=== PATIENT | male | born 1995 | race Caucasian/White ===

== ENCOUNTER → 2020-01-19 | Outpatient (CLI) | payer BC, OTHER ==
[~2020-01-19] MED LIST: MULTI VITAMIN1 EACH PO
== END ==
LOC: LAB 12:05
PROVIDERS: ATTEND Surgery
DX: Z01.812 Encounter for preprocedural laboratory examination (principal); Z20.828 Contact with and (suspected) exposure to other viral communicable diseases

== ENCOUNTER 2020-01-22 11:32 | Day surgery (SDC) | payer BC, OTHER ==
--- NOTE | 2020-01-21 16:09 | H ---
[facility] [address] HISTORY AND PHYSICAL Name: ANNETTE RAMAN KIM Room #: [place] [facility].#: [id number] Admission: Attend Phys: Mitesh Ibarra MD Discharge: Date of : 95 Report #: [id number] THIS REPORT FOR: cc: Henok Branch,Henok Yan,Mitesh Marin MD ~ CC: Henok Childs DATE OF SERVICE: 01/22/2020 SURGERY ADMISSION HISTORY AND PHYSICAL PATIENT OF: Dr. Henok Branch and Dr. Mitesh Ibarra. DATE OF ADMISSION AND SURGERY: 01/22/2020. CHIEF COMPLAINT: Right groin pain. HISTORY OF PRESENT ILLNESS: The patient is a 24-year-old white male who noticed some burning pain in his right groin about 1-1/2 years ago. He has not had any pain recently. No previous history of any hernias. He denied changes in bowel or bladder habits. He did notice a bulge in the right groin. He saw his primary care physician, Dr. Henok Branch who recommended surgical consultation. PAST MEDICAL HISTORY: Anxiety, hypertension, C. diff in 2017. MEDICATIONS: Melatonin and Tylenol p.r.n. ALLERGIES: PENICILLIN CAUSES ANAPHYLAXIS. FAMILY HISTORY: Mother with hypertension, father with history of hypertension, and maternal grandfather with history of colon carcinoma. SOCIAL HISTORY: The patient is single. Drinks alcohol occasionally, does smoke e-cigarettes. 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 REVIEW OF SYSTEMS: Pertinent positives as above. Full review of systems otherwise negative. PHYSICAL EXAMINATION: GENERAL: This is a well-developed, well-nourished, morbidly obese white male, in no acute distress. VITAL SIGNS: Stable. He is afebrile. Height is 70 inches, weight is 325 [facility] [address] [place] [address] HISTORY AND PHYSICAL Name: ANNETTE RAMAN KIM Room #: PRE [facility]..#: [id number] Admission: Attend Phys: Mitesh Ibarra MD Discharge: Date of : 95 Report #: [id number] pounds, BMI of 46.6. HEENT: Unremarkable. LUNGS: Clear to auscultation bilaterally. Normal excursion. CARDIOVASCULAR: Regular rate and rhythm. No murmurs, S3 or S4. Normal PMI. ABDOMEN: Obese, soft, flat and nontender. No palpable masses, no organomegaly, no abdominal wall hernias. GENITOURINARY: Normal scrotum, phallus and testes. He has a large inguinoscrotal hernia, right inguinal hernia, which is tender, partially reducible. EXTREMITIES: No clubbing, cyanosis or edema. NEUROLOGIC: Intact with a clear mental status. No focal motor or sensory deficits. IMPRESSION: A 24-year-old morbidly obese white male, moderate to large sized right inguinoscrotal hernia. I fully discussed with the patient the diagnosis, prognosis, treatment options. I did thoroughly discuss with the patient that hernia surgery may relieve all, some or none of his symptoms and groin pain. He states he understands and agrees to proposed surgery. PLAN: We will perform a right inguinal hernia repair with mesh under local IV sedation as an outpatient at [facility]. The procedure and its risks, benefits and possible complications including the use of mesh, fully discussed with the patient. He states he understands and agrees to proposed surgery. <ELECTRONICALLY SIGNED> By: Mitesh Ibarra MD 01/21/20 1609 [id number] Mitesh Ibarra MD /nt
[~2020-01-22] VITALS: Ht 182.9 cm; Wt 147.9 kg
[2020-01-22 11:58] VITALS: BP 124/73
[2020-01-22] MEDS ORDERED: MELATONIN3 M1 PO (12:32)
[2020-01-22] MEDS ORDERED: NORCO 5-325 TA1 EAC2 PO (13:36)
[2020-01-22 15:43] VITALS: BP 124/73
--- NOTE | 2020-01-26 12:06 | PATH ---
[facility] [address] [place] [address] PATHOLOGY RPT PROCEDURE Name: ANNETTE NICHOLS KIM Room #: DEP [facility] [place] M.R.#: [id number] Admission: 01/22/20 Date of : 95 Discharge: 01/22/20 Report #: [id number] Path Case #: [id number] [facility] Accession Number: [id number] . 01 Material submitted: . hernia - HERNIA SAC . 01 Clinical history: . HERNIA REPAIR, INGUINAL UNILATERAL . 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 (IUV:vinh; 01/25/2020) MBR 01/25/2020 1626 Local . 02 Electronically signed: . Crystal Abebe MD, Pathologist NPI- [id number] . 01 Gross description: . Received in formalin labeled "Nichols, Annette, hernia sac" is a portion of pink-dean membranous soft tissue measuring 12.2 x 3.8 x 1.2 cm. The specimen is sectioned to reveal no masses or nodules identified. Director Of Placement tissue is submitted in cassette A1. ([facility]; 01/23/2020) [facility] 01/23/2020 1130 Local . 02 Pathologist provided ICD-10: K40.90 . 02 CPT . 785737 Specimen Comment: A courtesy copy of this report has been sent to [phone] Specimen Comment: Report sent to DR BRANTLEY Performed at: [address], [place] [id number] MD Jeff Trejo MD Phone: [phone] Performed at: [address] [id number] MD Crystal Abebe MD Phone: [phone]
--- NOTE | 2020-01-29 16:27 | O ---
[facility] [place] [address] OPERATIVE REPORT Name: ANNETTE RAMAN KIM Room #: DEP [facility].#: [id number] Admission: 01/22/20 Attend Phys: Mitesh Ibarra MD Discharge: 01/22/20 Date of : 95 Report #: [id number] THIS REPORT FOR: cc: Henok Branch,Henok Yan,Mitesh Marin MD ~ CC: Henok Childs DATE OF SERVICE: 01/22/2020 PATIENT OF: Dr. Henok Branch. PREOPERATIVE DIAGNOSIS: Incarcerated right inguinoscrotal hernia. POSTOPERATIVE DIAGNOSIS: Incarcerated right inguinoscrotal hernia. PROCEDURE: Repair of an incarcerated right inguinoscrotal hernia with Marlex mesh plug. SURGEON: Mitesh Ibarra MD ANESTHESIA: General. DESCRIPTION OF PROCEDURE: The patient was brought to the operating room and placed on operative table in the supine position. Sequential compression devices were in place for DVT prophylaxis. There was no indication for preoperative antibiotics. The patient underwent a general LMA anesthesia and the right inguinal area was prepped and draped in a sterile fashion. Skin and subcutaneous tissue were then infiltrated with 0.5% Marcaine and 1% Xylocaine in a 1:1 mixture. Right inguinal skin incision was then performed using #10 scalpel blade. Hemostasis obtained using electrocautery as well as clamps and 2-0 chromic ties. Dissection was carried down through subcutaneous tissue, the external oblique fascia, which was then incised with a knife and opened with the Metzenbaum scissors. A large incarcerated indirect inguinal hernia sac and the cord was dissected up and held into place with a latex-free Hayes catheter. Cremasteric muscle fibers were then split in the direction of their fibers using clamp and electrocautery. A large indirect inguinal hernia sac was identified, dissected free from the cord, opened, and the contents reduced back into the abdomen. Hernia sac was then twisted and a high ligation of the sac was then performed using a 2-0 Prolene suture. Sac was excised and sent to pathology. The floor was inspected and was found to be intact. There really was not much of indirect widening of the ring. I opted to place an extra-large Marlex mesh plug in the internal ring and secured into place with simple interrupted 2-0 Prolene sutures. The overlay patch was then deployed around the cord and [address] [address] OPERATIVE REPORT Name: ANNETTE RAMAN [id number] Admission: 01/22/20 Attend Phys: Mitesh Ibarra MD Discharge: 01/22/20 Date of : 95 Report #: [id number] secured with a 2-0 Prolene suture medially and laterally. The cord was then returned to the canal intact. The external oblique fascia was then closed using running 2-0 Vicryl suture. Yi's fascia was then reapproximated using 3 simple interrupted 2-0 chromic sutures and the skin then closed with a running 4-0 subcuticular Vicryl stitch. The wound was then dressed with Mastisol, 1/2-inch Steri-Strips cut in half, Telfa, 4 x 4 gauze, sponge and tape. The patient was then awakened from the general anesthesia and taken to recovery room in good condition. Estimated blood loss was approximately 10 mL and the patient tolerated procedure well. All sponge, lap and instrument counts correct x 2. <ELECTRONICALLY SIGNED> By: Mitesh Ibarra MD 01/29/20 1627 1532 1557 Mitesh Ibarra MD /nt
== END 2020-01-22 16:50 | disposition home or self-care (01) ==
LOC: OR → TBA 11:32 → OR 11:32 → TBA 11:34 → OR 12:05
PROVIDERS: ATTEND Surgery
DX: K40.30 Unilateral inguinal hernia, with obstruction, without gangrene, not specified as recurrent (principal); R10.9 Unspecified abdominal pain; I10 Essential (primary) hypertension; F41.9 Anxiety disorder, unspecified; E66.01 Morbid (severe) obesity due to excess calories; Z98.890 Other specified postprocedural states; Z79.899 Other long term (current) drug therapy; Z86.010 Personal history of colon polyps; Z82.49 Family history of ischemic heart disease and other diseases of the circulatory system; Z68.42 Body mass index [BMI] 45.0-49.9, adult
CPT/HCPCS: 50010; 50101; 50386; 50417; 54130; 56524; 56525; 56526; 56528; 62110; 62900; 70005